=== PATIENT | female | born 1960 | race Caucasian/White ===

== ENCOUNTER 2018-11-12 18:01 | Emergency (ER) | payer OTHER ==
[~2018-11-12] VITALS: Ht 162.5 cm; Wt 72.6 kg
[2018-11-12 19:05] LABS: HEMATOCRIT 40.5 % (37.0-47.0); HEMOGLOBIN 12.8 g/dl (12.0-16.0); MEAN CELL VOLUME 113.4 fl (81.0-99.0); MEAN CORPUSCULAR HGB 35.9 pg (27.0-31.0); MEAN CORPUSCULAR HGB CONC 31.6 g/dl (33.0-37.0); MEAN PLATELET VOLUME 9.8 fl (9.6-12.3); PLATELET COUNT AUTOMATED 235 10*3/uL (130-400); RED BLOOD COUNT 3.57 10*6/uL (4.10-5.10); RED CELL DISTRI WIDTH 16.4 % (0-14.5); WHITE BLOOD COUNT 9.4 10*3/uL (4.8-10.8)
[2018-11-12 19:20] LABS: ALBUMIN 3.5 gm/dl (3.1-4.5); ALKALINE PHOSPHATASE 108 U/L (45-117); BUN 48 mg/dl (7-24); CHLORIDE 111 mmol/L (98-107); CREATININE 1.47 mg/dL (0.55-1.02); LIPASE 141 U/L (73-393); POTASSIUM 4.9 mmol/L (3.5-5.1); SGOT/AST 14 IU/L (3-35); SGPT/ALT 23 U/L (12-78); SODIUM 137 mmol/L (136-145); TOTAL PROTEIN 7.4 gm/dL (6.4-8.2)
[2018-11-12 19:22] LABS: BILIRUBIN NEGATIVE (NEGATIVE); BLOOD NEGATIVE (NEGATIVE); CLARITY CLEAR (CLEAR); COLOR YELLOW (YELLOW); GLUCOSE NEGATIVE (NEGATIVE); KETONE NEGATIVE (NEGATIVE); LEUKO ESTERASE NEGATIVE (NEGATIVE); NITRITE NEGATIVE (NEGATIVE); PH 5.5 (5.0-9.0); SPECIFIC GRAVITY 1.025 (1.005-1.030); UROBILINOGEN 0.2 E.U./dl (0.2-1.0)
[2018-11-12 19:27] LABS: BASOPHILS 2 % (0-1); PLATELET SUFFICIENCY NORMAL (NORMAL); TOTAL CELLS COUNTED 100 #CELLS
[2018-11-12 19:28] LABS: POLYCHROMASIA SLIGHT
[2018-11-12 19:38] LABS: BACTERIA TRACE; EPITHELIAL CELLS 40-45
[2018-11-12 19:39] LABS: RBC 0-2 rbc/hpf (0-2); WBC 0-2 wbc/hpf (0-5)
[2018-11-12] MEDS ORDERED: ZITHROMAX250 MG PO (20:50)
== END 2018-11-12 21:05 | disposition home or self-care (01) ==
LOC: ED 18:01
PROVIDERS: Nurse Practitioner Family
DX: J32.9 Chronic sinusitis, unspecified (principal); R10.11 Right upper quadrant pain; R11.2 Nausea with vomiting, unspecified; H92.03 Otalgia, bilateral; F17.200 Nicotine dependence, unspecified, uncomplicated; Z88.0 Allergy status to penicillin; Z88.6 Allergy status to analgesic agent

== ENCOUNTER 2020-01-15 19:46 | Emergency (ER) | payer OTHER ==
[~2020-01-15] VITALS: Ht 162.5 cm; Wt 75.7 kg
[~2020-01-15 19:46] MED LIST: ZITHROMAX250 MG PO
[2020-01-15] MEDS ORDERED: BREO ELLIPTA 11 EACH INH (20:05)
[2020-01-15] MEDS ORDERED: PREDNISONE10 M1 PO (20:05)
[2020-01-15] MEDS ORDERED: METHOCARBAMOL500 M1 PO (20:05)
[2020-01-15] MEDS ORDERED: SPIRIVA RESPIMAT4 GM INH (20:05)
[2020-01-15] MEDS ORDERED: CYCLOBENZAPRINE10 MG PO (22:55)
== END 2020-01-15 23:22 | disposition home or self-care (01) ==
LOC: ED 19:46
DX: M54.30 Sciatica, unspecified side (principal); M25.551 Pain in right hip; I10 Essential (primary) hypertension; F32.9 Major depressive disorder, single episode, unspecified; E78.00 Pure hypercholesterolemia, unspecified; R56.9 Unspecified convulsions; F17.200 Nicotine dependence, unspecified, uncomplicated; Z88.0 Allergy status to penicillin; Z88.8 Allergy status to other drugs, medicaments and biological substances; Z79.899 Other long term (current) drug therapy

== ENCOUNTER → 2024-07-11 | Day surgery (SDC) | payer MEDICARE ==
[~2024-07-11] VITALS: Ht 162.5 cm; Wt 63.5 kg
[~2024-07-11] MED LIST changes: +AMLODIPINE BESYL5 MG PO; +BREO ELLIPTA 11 EACH INH; +CYCLOBENZAPRINE10 MG PO; +ENALAPRIL20 MG PO; +KEPPRA500 MG PO; +Lactated Ringer's Solution 1,000 ML IV ONE; +Lactated Ringer's Solution 1,000 ML IV SCH; +Lidocaine Hydrochloride 5 ML VIAL IV ONE; +MELATONIN5 M6 PO; +METHOCARBAMOL500 M1 PO; +PREDNISONE10 M1 PO; +PROPOFOL 200 MG/20 ML VIAL IV ONE; +SPIRIVA RESPIMAT4 GM INH
[2024-07-11 07:30] VITALS: BP 140/70
[2024-07-11 09:12] VITALS: BP 158/53
[2024-07-11 09:27] VITALS: BP 140/89
[2024-07-11 09:41] VITALS: BP 136/62
== END | disposition home or self-care (01) ==
LOC: SDC 07-08 10:15
PROVIDERS: ATTEND Surgery
DX: Z12.11 Encounter for screening for malignant neoplasm of colon (principal); I10 Essential (primary) hypertension; J44.9 Chronic obstructive pulmonary disease, unspecified; Z86.010 Personal history of colon polyps; Z90.710 Acquired absence of both cervix and uterus; Z90.49 Acquired absence of other specified parts of digestive tract; Z96.652 Presence of left artificial knee joint; Z86.73 Personal history of transient ischemic attack (TIA), and cerebral infarction without residual deficits; Z87.891 Personal history of nicotine dependence; Z98.890 Other specified postprocedural states; Z79.899 Other long term (current) drug therapy; Z88.0 Allergy status to penicillin; Z88.5 Allergy status to narcotic agent; Z88.8 Allergy status to other drugs, medicaments and biological substances
CPT/HCPCS: 00812; G0105